=== PATIENT | male | born 1965 | race Hispanic/Latino ===

== ENCOUNTER 2020-12-22 08:25 | Outpatient (CLI) | payer OTHER | END 2020-12-22 08:26 | disposition home or self-care (01) | LOC: PF 08:25 | PROVIDERS: ATTEND Internal Medicine | DX: J45.909 Unspecified asthma, uncomplicated (principal); M25.519 Pain in unspecified shoulder; F32.9 Major depressive disorder, single episode, unspecified; F41.9 Anxiety disorder, unspecified; M19.90 Unspecified osteoarthritis, unspecified site; E78.00 Pure hypercholesterolemia, unspecified; K21.9 Gastro-esophageal reflux disease without esophagitis; Z96.649 Presence of unspecified artificial hip joint; Z96.659 Presence of unspecified artificial knee joint | CPT/HCPCS: 94010; 94729 ==